=== PATIENT | male | born 1985 | race Caucasian/White ===

== ENCOUNTER → 2020-12-27 | Emergency (ER) | payer OTHER | LOC: ER 16:54 | DX: F10.129 Alcohol abuse with intoxication, unspecified (principal); Z53.21 Procedure and treatment not carried out due to patient leaving prior to being seen by health care provider ==

== ENCOUNTER 2021-04-21 15:27 | Emergency (ER) | payer OTHER ==
[~2021-04-21] VITALS: Ht 175.3 cm; Wt 80.7 kg
[~2021-04-21 15:27] MED LIST: CLONAZEPAM 0.50.5 M1 PO; ZOFRAN ODT4 MG PO
[2021-04-21] MEDS ORDERED: ATIVAN0.5 M1 PO (17:29)
[2021-04-21] MEDS ORDERED: ONDANSETRON HCL4 M2 PO (17:29)
[2021-04-21 17:35] VITALS: BP 125/79
--- NOTE | 2021-04-22 12:29 | EKG ---
[place] [address] [facility] [employer] [address] ELECTROCARDIOGRAM REPORT Name: CARRIE BURRELL Room #: DEP AIYANA Vega#: [id number] Admission: 04/21/21 Attend Phys: Discharge: 04/21/21 Date of : 85 Report #: [id number] [facility] ED Test Date: 2021-04-21 Test Time: 15:38:01 Pat Name: CARRIE BURRELL Department: Room: Gender: M Document Imaging Specialist: unknown : 1985 Requested By: Noble Teran Order Number: [id number] MD: Luis Caputo Measurements Intervals [place] Rate: 103 P: 59 [place]: 147 QRS: 77 QRSD: 95 T: 42 QT: 343 QTc: 449 Interpretive Statements Sinus tachycardia Poor R wave progression Baseline wander in lead(s) V1,V2,V5,V6 No previous ECG available for comparison Electronically Signed On 04-22-2021 12:29:35 [employer] by Luis Caputo [email or web address] <ELECTRONICALLY SIGNED> By: Luis Caputo MD, [facility] 04/22/21 1229 1538 1538 Luis Caputo MD, FACC /EPI
== END 2021-04-21 17:36 | disposition home or self-care (01) ==
LOC: ER 15:27
DX: F10.239 Alcohol dependence with withdrawal, unspecified (principal); Y90.9 Presence of alcohol in blood, level not specified; R06.6 Hiccough; Z79.899 Other long term (current) drug therapy; Z88.1 Allergy status to other antibiotic agents